=== PATIENT | female | born 1965 | race Caucasian/White ===

== ENCOUNTER 2021-12-17 19:24 | Emergency (ER) | payer BC ==
[2021-12-17 21:39] LABS: #Basophils 0.1 thou/uL (0.0-0.2); #Eosinphils 0.1 thou/uL (0.0-0.7); #Lymphocytes 2.3 thou/uL (1.20-3.40); #Monocytes 0.9 thou/uL (0.11-0.59); #Neutrophils 6.2 thou/uL (1.40-6.50); %Basophils 0.7 % (0.0-1.0); %Eosinophils 1.5 % (0.0-10.0); %Lymphocytes 24.2 % (21.0-51.0); %Monocytes 9.2 % (0.0-10.0); %Neutrophils 64.5 % (42.0-75.0); Hemoglobin 13.7 g/dL (12.0-16.0); Mean Corpuscular HGB CONC 31.7 g/dL (32.0-36.0); Mean Corpuscular Hemoglobin 29.4 pg (27.0-31.0); Mean Corpuscular Volume 92.6 fL (78.0-98.0); Mean Platelet Volume 8.7 fL (7.4-10.4); Platelet Count 268 thou/uL (130-400); RBC Distribution Width 11.9 % (11.5-14.5); Red Blood Cell (RBC) Count 4.67 mill/uL (4.20-5.40); White Blood Cell (WBC) Count 9.6 thou/uL (4.8-10.8)
[2021-12-17 21:56] LABS: ALT (SGPT) 13 U/L (8-55); AST (SGOT) 28 U/L (5-34); Albumin 4.2 g/dL (3.5-5.0); Alkaline Phosphatase 112 U/L (40-110); Anion Gap 17 mmol/L (10-20); BUN (Urea Nitrogen) 13 mg/dL (9.8-20.1); Bilirubin, Total 0.3 mg/dL (0.2-1.2); Calc. Creatinine Clearance 0 mL/min (70-130); Calcium 9.4 mg/dL (7.8-10.44); Carbon Dioxide 26 mmol/L (22-29); Chloride 104 mmol/L (98-107); Globulin 3.6 g/dL (2.4-3.5); Glucose 93 mg/dL (70-105); Potassium 3.5 mmol/L (3.5-5.1); Protein, Total 7.8 g/dL (6.0-8.3); Sodium 143 mmol/L (136-145)
[2021-12-17] MEDS ORDERED: Lidocaine 1% w/Epinephrine 1:100K 20 ML VIAL ONE (23:36)
[2021-12-18] MEDS ORDERED: cefTRIAXone\\ROCEPHIN 2 GM VIAL ONE (00:30)
[2021-12-18] MEDS ORDERED: Vancomycin HCl 500 MG VIAL ONE (00:30)
[2021-12-18] MEDS ORDERED: Sodium Chloride 0.9% 250 ML 250 ML ONE (00:30)
[2021-12-18] MEDS ORDERED: Sodium Chloride 0.9% 100 ML ONE (00:30)
[2021-12-18] MEDS ORDERED: Sulfameth/Trimethoprim DS 800-160mg TAB ONE (00:30)
[2021-12-18] MEDS ORDERED: Metoclopramide HCl 10 MG/2 ML VIAL ONE (01:16)
[2021-12-18 02:16] LABS: RBC Count-Automated (BF) 26399 /cu.mm; WBC/Nucleated-Auto (BF) 2080 /cu.mm
[2021-12-18 02:17] LABS: BF Color Pink; Body Fluid Source Synovial Fluid; Clarity Cloudy/Turbid (Clear); Tube # 1
[2021-12-18 02:24] LABS: BF Segmented Neutrophils 69 %; Cell Count Non Hematic 19 %; Lymphocytes 12 %
== END 2021-12-18 03:47 | disposition home or self-care (01) ==
LOC: MADERS 19:24
DX: M70.22 Olecranon bursitis, left elbow (principal); M17.11 Unilateral primary osteoarthritis, right knee; L30.9 Dermatitis, unspecified; L03.115 Cellulitis of right lower limb; E03.9 Hypothyroidism, unspecified; J45.909 Unspecified asthma, uncomplicated; Z79.899 Other long term (current) drug therapy; Z79.51 Long term (current) use of inhaled steroids
CPT/HCPCS: 20611; 80053; 83605; 85025; 85060; 87070; 87205; 89051; 89060; 96365; 96366; 96367; 96375; J0696; J2765; J3370; J3490; J7050

== ENCOUNTER 2022-12-20 14:59 | Outpatient (CLI) | payer BC | END 2022-12-20 15:00 | disposition home or self-care (01) | LOC: MADRAD 14:59 | PROVIDERS: ATTEND Nurse Practitioner Family | DX: J45.909 Unspecified asthma, uncomplicated (principal); R05.9 Cough, unspecified | CPT/HCPCS: 71046 ==

== ENCOUNTER 2023-12-06 11:09 | Emergency (ER) | payer BC ==
[2023-12-06] MEDS ORDERED: HYDROcodone/Acetaminophen 10/325 mg Tablet ONE (11:35)
== END 2023-12-06 12:34 | disposition home or self-care (01) ==
LOC: MADERS 11:09
DX: S52.571A Other intraarticular fracture of lower end of right radius, initial encounter for closed fracture (principal); E03.9 Hypothyroidism, unspecified; W54.1XXA Struck by dog, initial encounter
CPT/HCPCS: 29105